=== PATIENT | female | born 1985 | race American Indian/Alaskan Native ===

== ENCOUNTER 2019-03-22 13:32 | Emergency (ER) | payer SELFPAY ==
[2019-03-22 13:47] VITALS: BP 147/114
--- NOTE | 2019-03-22 14:06 | Emergency Department Report ---
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 Pain is worse with weather changes when she begins ambulating. Tried [id number] Motrin and bio freeze to help manage the pain, but it is becoming any effective. Reports no blunt trauma, swelling. - Related Data Previous Rx's Medication Instructions Recorded Last Taken Type predniSONE [Deltasone] 20 mg PO BID #10 tablet 03/22/19 Unknown Rx Allergies Allergy/AdvReac Type Severity Reaction Status Date / Time No Known Allergies Allergy Unverified 03/22/19 13:33 ED Review of Systems ROS: Stated complaint: KNEE PAINS Other details as noted in HPI Constitutional: denies: chills, fever Eyes: denies: eye pain, eye discharge, vision change ENT: denies: ear pain, throat pain Respiratory: denies: cough, shortness of breath, wheezing Cardiovascular: denies: chest pain, palpitations Endocrine: no symptoms reported Gastrointestinal: denies: abdominal pain, nausea, diarrhea Genitourinary: denies: urgency, dysuria, discharge Musculoskeletal: denies: back pain, joint swelling, arthralgia Skin: denies: rash, lesions Neurological: denies: headache, weakness, paresthesias Psychiatric: denies: anxiety, depression Hematological/Lymphatic: denies: easy bleeding, easy bruising ED Past Medical Hx - Past Medical History Previous Medical History?: No - Surgical History Past Surgical History?: No - Social History Smoking Status: Former Smoker Substance Use Type: Alcohol - Medications Home Medications: Home Medications Medication Instructions Recorded Confirmed Last Taken Type predniSONE [Deltasone] 20 mg PO BID #10 tablet 03/22/19 Unknown Rx ED Physical Exam - General Limitations: No Limitations General appearance: alert, in no apparent distress - Head Head exam: Present: atraumatic, normocephalic - Eye Eye exam: Present: normal appearance - ENT ENT exam: Present: mucous membranes moist - Neck Neck exam: Present: normal inspection - Respiratory Respiratory exam: Present: normal lung sounds bilaterally. Absent: respiratory distress - Cardiovascular Cardiovascular Exam: Present: regular rate, normal rhythm. Absent: systolic murmur, diastolic murmur, rubs, gallop - GI/Abdominal GI/Abdominal exam: Present: soft, normal bowel sounds - Extremities Exam Extremities exam: Present: normal inspection, tenderness, normal capillary refill, pedal edema - Expanded Lower Extremity Exam Left Upper Leg exam: Present: normal inspection, full ROM Knee exam: Present: tenderness, full knee extension. Absent: laceration, deformity, erythema, effusion, pain/laxity with valgus, pain/laxity with varus Lower Leg exam: Present: normal inspection, full ROM Foot/Toe exam: Present: normal inspection, full ROM 1 - PAIN WITH ROM AND PALPTION TO PROXIMAL PATELLA. NORMAL VALGUS. PAIN WITH JOINT VERTICAL COMPRESSION 2 - PAIN WITH PALPTION TO MEDIAL AND PROXOIMAL REGION. NO EDEMA. NO REDNESS . - Back Exam Back exam: Present: normal inspection. Absent: CVA tenderness (R), CVA tenderness (L) - Neurological Exam Neurological exam: Present: alert, oriented X3, CN II-XII intact, normal gait - Psychiatric Psychiatric exam: Present: normal affect, normal mood. Absent: anxious, flat affect, homicidal ideation, suicidal ideation - Skin Skin exam: Present: warm, dry, intact, normal color. Absent: rash ED Course Vital Signs 03/22/19 13:41 Temperature 97.9 F Pulse Rate 66 Respiratory 18 Rate Blood Pressure 147/114 [Right] O2 Sat by Pulse 99 Oximetry Critical care attestation.: If time is entered above; I have spent that time in minutes in the direct care of this critically ill patient, excluding procedure time. ED Disposition Clinical Impression: Knee pain, bilateral Disposition: -01 TO HOME OR SELFCARE Is pt being admited?: No Does the pt Need Aspirin: No Condition: Stable Instructions: Arthralgia (ED) Prescriptions: predniSONE [Deltasone] 20 mg PO BID #10 tablet Referrals: ISABELA SPRING MD [Staff Physician] - 3-5 Days
--- NOTE | 2019-03-22 15:05 | XRay Report ---
Bilateral knees 3 views: History: Severe pain with ambulation. Findings: No significant narrowing of the medial lateral and patellofemoral compartment. Articular surfaces are unremarkable. No fracture. No soft tissue calcification. Impression: No bony or articular abnormality.
[2019-03-22] MEDS ORDERED: NORCO 5/325 PO STA (16:08)
== END 2019-03-22 16:14 | disposition home or self-care (01) ==
LOC: ED 13:32
DX: M25.561 Pain in right knee (principal); M25.562 Pain in left knee; Z87.891 Personal history of nicotine dependence
CPT/HCPCS: 99283